=== PATIENT | female | born 1980 | race Caucasian/White ===

== ENCOUNTER 2016-08-15 20:52 | Inpatient (IN) | payer MEDICAID, OTHER ==
[~2016-08-15] VITALS: Ht 165.1 cm; Wt 89.5 kg
[~2016-08-15 20:52] MED LIST: NITR-36; [UNRECOGNIZED DRUG - OTHER]
[2016-08-15] MEDS ORDERED: ONDANSETRON 4 MG INJ IV STA (23:32)
[2016-08-15] MEDS ORDERED: SOD CHLORIDE 0.9% 1,000 ML IV STA (23:32)
[2016-08-15] MEDS ORDERED: ACETAMINOPHEN 500 MG TAB PO STA (23:32)
[2016-08-15] MEDS ORDERED: FAMOTIDINE 20 MG INJ IV STA (23:32)
--- NOTE | 2016-08-15 23:38 | ERD ---
ER Documentation Chief Complaint Date/Time DATE: 08/15/16 TIME: 23:34 Chief Complaint n/v x 1 day HPI This a 35-year-old female who presents to the emergency department today complaining of multiple bouts of vomiting that started today. Patient states she does have some body aches. States she has an upper abdominal pain. She has a history of gallstones. States that she feels weak. Denies any sore throat , earache, headache, dysuria, cough. ROS All systems reviewed and are negative except as per history of present illness. Medications Home Meds Reported Medications Nitrofurantoin Macrocrystal* (Macrodantin*) 100 Mg Capsule 09/29/10 [Iron,Prenatals] No Conflict Check 09/26/10 Allergies Allergies: Coded Allergies: No Known Allergy (Unverified , 09/29/10) PMhx/Soc History of Surgery: Yes (APPENDECTOMY, 2 X C SECTION) Anesthesia Reaction: No Hx Neurological Disorder: No Hx Respiratory Disorders: No Hx Cardiac Disorders: No Hx Psychiatric Problems: No Hx Miscellaneous Medical Probl: Yes (gallstone) Hx Alcohol Use: No Hx Substance Use: No Hx Tobacco Use: No Smoking Status: Never smoker Physical Exam Vitals Vital Signs Date Time Temp Pulse Resp B/P Pulse Ox O2 Delivery O2 Flow Rate FiO2 08/15/16 20:54 102.2 104 17 135/65 94 Physical Exam Const: Cooperative, no acute distress Head: Atraumatic Eyes: Normal Conjunctiva ENT: Ears TMs normal. Nose no drainage. Throat erythema no exudate Neck: Full range of motion..~ No meningismus. Resp: Clear to auscultation bilaterally no absent breath sounds. No wheezing. Cardio: Regular rate and rhythm, no murmurs Abd: Soft, epigastric tenderness, right upper quadrant tenderness. non distended. Normal bowel sounds. No lower abdominal pain. Skin: No petechiae or rashes Back: No midline or flank tenderness no CVA tenderness. Ext: No cyanosis, or edema Neur: Awake and alert Psych: Normal Mood and Affect Result Diagram: 08/15/16 0005 08/15/16 0005 Results 24 hrs Laboratory Tests Test 08/15/16 00:00 08/15/16 00:05 Urine Color YELLOW Urine Clarity CLEAR Urine pH 8.0 Urine Specific [place] 1.015 Urine Ketones NEGATIVE Urine Nitrite NEGATIVE Urine Bilirubin NEGATIVE Urine Urobilinogen 1.0 E.U./dL Urine Leukocyte Esterase TRACE Urine Microscopic RBC 2-5/HPF Urine Microscopic WBC 0-2/HPF Urine Squamous Epithelial Cells MODERATE Urine Bacteria MODERATE Urine Hemoglobin 2+ Urine Glucose NEGATIVE% Urine Total Protein TRACE White Blood Count 7.910^3/ul Red Blood Count 4.5710^6/ul Hemoglobin 12.6g/dl Hematocrit 38.0% Mean Corpuscular Volume 83.2fl Mean Corpuscular Hemoglobin 27.6pg Mean Corpuscular Hemoglobin Concent 33.2g/dl Red Cell Distribution Width 13.2% Platelet Count 04647^3/UL Mean Platelet Volume 9.6fl Neutrophils % 86.3% Lymphocytes % 9.6% Monocytes % 3.5% Eosinophils % 0.1% Basophils % 0.1% Nucleated Red Blood Cells % 0.0/100WBC Neutrophils # 6.910^3/ul Lymphocytes # 0.810^3/ul Monocytes # 0.310^3/ul Eosinophils # 0.010^3/ul Basophils # 0.010^3/ul Nucleated Red Blood Cells # 0.010^3/ul Sodium Level 136mmol/L Potassium Level 3.8mmol/L Chloride Level 106mmol/L Carbon Dioxide Level 22mmol/L Anion Gap 12 Blood Urea Nitrogen 10mg/dl Creatinine 0.61mg/dl Glucose Level 108mg/dl Calcium Level 8.6mg/dl Total Bilirubin 1.5mg/dl Direct Bilirubin 0.00mg/dl Indirect Bilirubin 1.5mg/dl Aspartate Amino Transf (AST/SGOT) 44IU/L Alanine Aminotransferase (ALT/SGPT) 77IU/L Alkaline Phosphatase 105IU/L Total Protein 7.6g/dl Albumin 4.3g/dl Globulin 3.30g/dl Albumin/Globulin Ratio 1.30 Lipase 70U/L Current Medications Medications (Trade) Dose Ordered Sig/Reina Route PRN Reason Start Time Stop Time Status Last Admin Dose Admin Sodium Chloride (NS) 1,000 ml @ 1,000 mls/hr Q1H STAT IV 08/15/16 23:32 08/16/16 00:31 DC 08/16/16 00:21 Ondansetron HCl (Zofran Inj) 4 mg ONCE STAT IV 08/15/16 23:32 08/15/16 23:35 DC 08/16/16 00:20 Famotidine (Pepcid Iv) 20 mg ONCE STAT IV 08/15/16 23:32 08/15/16 23:35 DC 08/16/16 00:20 Acetaminophen (Tylenol Tab) 500 mg ONCE STAT PO 08/15/16 23:32 08/15/16 23:35 DC DIAGNOSTIC IMAGING REPORT Patient: CRISTINE PINA : 1980 Age: 35 Sex: F MR #: [id number] DOS: 08/16/16 2332 Ordering MD: NORBERTO BLAKE PA-C Location: [facility] Room/Bed: PROCEDURE: US Abdomen (right upper quadrant). CLINICAL INDICATION: Pain. Fever. TECHNIQUE: Multiple real-time longitudinal and transverse images of the right upper quadrant of the abdomen were acquired utilizing a curved array transducer. Images were reviewed on a high-resolution PACS workstation. COMPARISON: None FINDINGS: The liver is enlarged at 20 cm and mildly echogenic without focal mass. Gallstones are present including a non mobile gallstone in the region of the gallbladder neck. Gallbladder wall is thickened at 4.8 mm. There is no pericholecystic fluid. No intra or extrahepatic biliary dilatation is seen. The common bile duct measures 4.1 mm in maximal dimension. The visualized portions of the pancreas are unremarkable with obscuration of the tail of the pancreas. No free fluid is identified. Visualized abdominal aorta and IVC are unremarkable. The right kidney measures 10.5 cm in length. There is normal echogenicity within the right kidney. There is no perinephric fluid collection. No hydronephrosis, mass, or calculus is seen. IMPRESSION: 1. Cholelithiasis including a gallstone in the region gallbladder neck. 2. Gallbladder wall thickening. No pericholecystic fluid to suggest acute cholecystitis although this cannot be excluded. 3. No evidence for biliary obstruction. 4. Enlarged fatty liver. RPTAT: HMVK .Justice Fair MD, Date Time Electronically viewed and signed by .Justice Fair MD, on 08/16/2016 01:38 .K/ CC: NORBERTO BLAKE PA-C Procedures/[facility] This a 35-year-old female who presents the emergency department today complaining of multiple bouts of vomiting for the past day. Patient states she felt weak. On intake patient was febrile at 102.2 and was mildly tachycardic. Patient has history of gallstones. He did obtain laboratory work as well as a right upper quadrant ultrasound and UA and urine Laboratory work shows no elevated white blood cell count. She is not anemic. Platelets are within normal limits. Electrolytes are within normal limits. ALT is very mildly elevated. Lipase within normal limits bilirubin is elevated UA shows trace leukocyte Estrace. Urine test is negative. Right upper quadrant ultrasound shows cholelithiasis including a gallstone in the region of the gallbladder neck. There is gallbladder wall thickening with no pericholecystic fluid to suggest acute cholecystitis although this cannot be excluded. There is no evidence for biliary obstruction. There is an enlarged fatty liver. Given the patient's symptoms and elevated bilirubin as well as a stone in the gallbladder neck patient's physical exam, patient symptoms at this time likely related to acute cholecystitis. I discussed the patient with Dr. Horner and he feels that the patient should be admitted. I have discussed the findings with the patient and patient is in understanding Patient was given Tylenol, Zofran, Pepcid, IV fluids here in the emergency department. Patient will be transferred to the main side of the emergency department. Any further documentation will be completed by Dr. Horner or the admitting physician Departure Diagnosis: Primary Impression: Cholecystitis Condition: Fair NORBERTO BLAKE PA-C Aug 15, 2016 23:38
[2016-08-16] VITALS (20 sets, daily range): BP systolic 97–138; BP diastolic 50–78; PULSE 66–88; RESP 13–22; TEMP 97.8; Ht 165.1 cm; Wt 89.5 kg
[2016-08-16 00:33] LABS: ADD SCAN DIFF NO
[2016-08-16 00:35] LABS: BASOPHILS % 0.1 % (0.0-2.0); EOSINOPHILS % 0.1 % (0.0-7.0); HEMOGLOBIN 12.6 g/dl (12.0-16.0); LYMPHOCYTES # 0.8 10^3/ul (0.8-2.9); LYMPHOCYTES % 9.6 % (15.0-51.0); MEAN CORPUSCULAR HEMOGLOBIN 27.6 pg (29.0-33.0); MEAN CORPUSCULAR HGB CONC 33.2 g/dl (32.0-37.0); MEAN CORPUSCULAR VOLUME 83.2 fl (82.0-101.0); MEAN PLATELET VOLUME 9.6 fl (7.4-10.4); MONOCYTE # 0.3 10^3/ul (0.3-0.9); MONOCYTES % 3.5 % (0.0-11.0); NEUTROPHIL # 6.9 10^3/ul (1.6-7.5); NEUTROPHILS % 86.3 % (39.0-77.0); PLATELET COUNT 369 10^3/UL (140-415); RED BLOOD COUNT 4.57 10^6/ul (4.20-5.40); RED CELL DISTRIBUTION WIDTH 13.2 % (11.5-14.5); WHITE BLOOD COUNT 7.9 10^3/ul (4.8-10.8)
[2016-08-16 00:35] LABS: ADD UMIC YES; URINE BILIRUBIN (Dip) NEGATIVE (NEGATIVE); URINE BLOOD (Dip) 2+ (NEGATIVE); URINE COLOR YELLOW (YELLOW); URINE GLUCOSE (Dip) NEGATIVE (NEGATIVE); URINE KETONES (Dip) NEGATIVE (NEGATIVE); URINE LEUKOCYTE ESTERASE (Dip) TRACE (NEGATIVE); URINE NITRITE (Dip) NEGATIVE (NEGATIVE); URINE TOTAL PROTEIN (Dip) TRACE (NEGATIVE); URINE UROBILINOGEN (Dip) 1.0 E.U./dL (0.1-1.0)
[2016-08-16 00:46] LABS: ALBUMIN 4.3 g/dl (3.3-4.9); ALBUMIN/GLOBULIN RATIO 1.3; BILIRUBIN,INDIRECT 1.5 mg/dl (0-1.1); BILIRUBIN,TOTAL 1.5 mg/dl (0.2-1.3); CALCIUM 8.6 mg/dl (8.4-10.2); CREATININE 0.61 mg/dl (0.44-1.00); POTASSIUM 3.8 mmol/L (3.5-5.1); TOTAL PROTEIN 7.6 g/dl (6.1-8.1)
--- NOTE | 2016-08-16 01:38 | RADRPT ---
PROCEDURE: US Abdomen (right upper quadrant). CLINICAL INDICATION: Pain. Fever. TECHNIQUE: Multiple real-time longitudinal and transverse images of the right upper quadrant of th e abdomen were acquired utilizing a curved array transducer. Images were reviewed on a high-resoluti on PACS workstation. COMPARISON: None FINDINGS: The liver is enlarged at 20 cm and mildly echogenic without focal mass. Gallstones are present incl uding a non mobile gallstone in the region of the gallbladder neck. Gallbladder wall is thickened a t 4.8 mm. There is no pericholecystic fluid. No intra or extrahepatic biliary dilatation is seen. T he common bile duct measures 4.1 mm in maximal dimension. The visualized portions of the pancreas a re unremarkable with obscuration of the tail of the pancreas. No free fluid is identified. Visualiz ed abdominal aorta and IVC are unremarkable. The right kidney measures 10.5 cm in length. There is normal echogenicity within the right kidney. There is no perinephric fluid collection. No hydronephrosis, mass, or calculus is seen. IMPRESSION: 1. Cholelithiasis including a gallstone in the region gallbladder neck. 2. Gallbladder wall thickening. No pericholecystic fluid to suggest acute cholecystitis although t his cannot be excluded. 3. No evidence for biliary obstruction. 4. Enlarged fatty liver. RPTAT: HMVK .Justice Fair MD, MD Date Time Electronically viewed and signed by .Justice Fair MD, MD on 08/16/2016 01:38 .K/
[2016-08-16 01:41] LABS: BACTERIA,URINE MODERATE; SQUAMOUS EPITHELIAL CELL,UR MODERATE
[2016-08-16] MEDS ORDERED: ACETAMINOPHEN 500 MG TAB PO STA (03:00)
[2016-08-16] MEDS ORDERED: PIPER-TAZO 3.375 GM IV (PMX) 100 ML IVPB ONE (03:00)
[2016-08-16] MEDS ORDERED: SOD CHLORIDE 0.9% 1,000 ML IV SCH (03:15)
--- NOTE | 2016-08-16 03:15 | HP ---
Date/Time of Note Date/Time of Note DATE: 08/16/16 TIME: 03:15 HPI/ROS Admit Date/Time Admit Date/Time 08/16/16 0309 Hx of Present Illness This a 35-year-old female who presents to the emergency department today complaining of multiple bouts of vomiting that started today. Patient states she does have some body aches. States she has an upper abdominal pain. She has a history of gallstones. States that she feels weak. Denies any sore throat , earache, headache, dysuria, cough. ROS All systems reviewed and are negative except as per history of present illness. Medications Home Meds Reported Medications Nitrofurantoin Macrocrystal* (Macrodantin*) 100 Mg Capsule 09/29/10 [Iron,Prenatals] No Conflict Check 09/26/10 Allergies Allergies: Coded Allergies: No Known Allergy (Unverified , 09/29/10) PMhx/Soc History of Surgery: Yes (APPENDECTOMY, 2 X C SECTION) Anesthesia Reaction: No Hx Neurological Disorder: No Hx Respiratory Disorders: No Hx Cardiac Disorders: No Hx Psychiatric Problems: No Hx Miscellaneous Medical Probl: Yes (gallstone) Hx Alcohol Use: No Hx Substance Use: No Hx Tobacco Use: No Smoking Status: Never smoker Physical Exam Vitals Vital Signs Date Time Temp Pulse Resp B/P Pulse Ox O2 Delivery O2 Flow Rate FiO2 08/15/16 20:54 102.2 104 17 135/65 94 Physical Exam Const: Cooperative, no acute distress Head: Atraumatic Eyes: Normal Conjunctiva ENT: Ears TMs normal. Nose no drainage. Throat erythema no exudate Neck: Full range of motion..~ No meningismus. Resp: Clear to auscultation bilaterally no absent breath sounds. No wheezing. Cardio: Regular rate and rhythm, no murmurs Abd: Soft, epigastric tenderness, right upper quadrant tenderness. non distended. Normal bowel sounds. No lower abdominal pain. Skin: No petechiae or rashes Back: No midline or flank tenderness no CVA tenderness. Ext: No cyanosis, or edema Neur: Awake and alert Psych: Normal Mood and Affect Result Diagram: 08/15/16 0005 08/15/16 0005 Results 24 hrs Laboratory Tests Test 08/15/16 00:00 08/15/16 00:05 Urine Color YELLOW Urine Clarity CLEAR Urine pH 8.0 Urine Specific [place] 1.015 Urine Ketones NEGATIVE Urine Nitrite NEGATIVE Urine Bilirubin NEGATIVE Urine Urobilinogen 1.0 E.U./dL Urine Leukocyte Esterase TRACE Urine Microscopic RBC 2-5/HPF Urine Microscopic WBC 0-2/HPF Urine Squamous Epithelial Cells MODERATE Urine Bacteria MODERATE Urine Hemoglobin 2+ Urine Glucose NEGATIVE% Urine Total Protein TRACE White Blood Count 7.910^3/ul Red Blood Count 4.5710^6/ul Hemoglobin 12.6g/dl Hematocrit 38.0% Mean Corpuscular Volume 83.2fl Mean Corpuscular Hemoglobin 27.6pg Mean Corpuscular Hemoglobin Concent 33.2g/dl Red Cell Distribution Width 13.2% Platelet Count 50114^3/UL Mean Platelet Volume 9.6fl Neutrophils % 86.3% Lymphocytes % 9.6% Monocytes % 3.5% Eosinophils % 0.1% Basophils % 0.1% Nucleated Red Blood Cells % 0.0/100WBC Neutrophils # 6.910^3/ul Lymphocytes # 0.810^3/ul Monocytes # 0.310^3/ul Eosinophils # 0.010^3/ul Basophils # 0.010^3/ul Nucleated Red Blood Cells # 0.010^3/ul Sodium Level 136mmol/L Potassium Level 3.8mmol/L Chloride Level 106mmol/L Carbon Dioxide Level 22mmol/L Anion Gap 12 Blood Urea Nitrogen 10mg/dl Creatinine 0.61mg/dl Glucose Level 108mg/dl Calcium Level 8.6mg/dl Total Bilirubin 1.5mg/dl Direct Bilirubin 0.00mg/dl Indirect Bilirubin 1.5mg/dl Aspartate Amino Transf (AST/SGOT) 44IU/L Alanine Aminotransferase (ALT/SGPT) 77IU/L Alkaline Phosphatase 105IU/L Total Protein 7.6g/dl Albumin 4.3g/dl Globulin 3.30g/dl Albumin/Globulin Ratio 1.30 Lipase 70U/L Current Medications Medications (Trade) Dose Ordered Sig/Reina Route PRN Reason Start Time Stop Time Status Last Admin Dose Admin Sodium Chloride (NS) 1,000 ml @ 1,000 mls/hr Q1H STAT IV 08/15/16 23:32 08/16/16 00:31 DC 08/16/16 00:21 Ondansetron HCl (Zofran Inj) 4 mg ONCE STAT IV 08/15/16 23:32 08/15/16 23:35 DC 08/16/16 00:20 Famotidine (Pepcid Iv) 20 mg ONCE STAT IV 08/15/16 23:32 08/15/16 23:35 DC 08/16/16 00:20 Acetaminophen (Tylenol Tab) 500 mg ONCE STAT PO 08/15/16 23:32 08/15/16 23:35 DC DIAGNOSTIC IMAGING REPORT Patient: CRISTINE PINA : 1980 Age: 35 Sex: F MR #: [id number] DOS: 08/16/16 2332 Ordering MD: NORBERTO BLAKE PA-C Location: [facility] Room/Bed: PROCEDURE: US Abdomen (right upper quadrant). CLINICAL INDICATION: Pain. Fever. TECHNIQUE: Multiple real-time longitudinal and transverse images of the right upper quadrant of the abdomen were acquired utilizing a curved array transducer. Images were reviewed on a high-resolution PACS workstation. COMPARISON: None FINDINGS: The liver is enlarged at 20 cm and mildly echogenic without focal mass. Gallstones are present including a non mobile gallstone in the region of the gallbladder neck. Gallbladder wall is thickened at 4.8 mm. There is no pericholecystic fluid. No intra or extrahepatic biliary dilatation is seen. The common bile duct measures 4.1 mm in maximal dimension. The visualized portions of the pancreas are unremarkable with obscuration of the tail of the pancreas. No free fluid is identified. Visualized abdominal aorta and IVC are unremarkable. The right kidney measures 10.5 cm in length. There is normal echogenicity within the right kidney. There is no perinephric fluid collection. No hydronephrosis, mass, or calculus is seen. IMPRESSION: 1. Cholelithiasis including a gallstone in the region gallbladder neck. 2. Gallbladder wall thickening. No pericholecystic fluid to suggest acute cholecystitis although this cannot be excluded. 3. No evidence for biliary obstruction. 4. Enlarged fatty liver. RPTAT: HMVK .Justice Fair MD, Date Time Electronically viewed and signed by .Justice Fair MD, MD on 08/16/2016 01:38 .K/ CC: NORBERTO BLAKE PA-C Procedures/[facility] This a 35-year-old female who presents the emergency department today complaining of multiple bouts of vomiting for the past day. Patient states she felt weak. On intake patient was febrile at 102.2 and was mildly tachycardic. Patient has history of gallstones. He did obtain laboratory work as well as a right upper quadrant ultrasound and UA and urine Laboratory work shows no elevated white blood cell count. She is not anemic. Platelets are within normal limits. Electrolytes are within normal limits. ALT is very mildly elevated. Lipase within normal limits bilirubin is elevated UA shows trace leukocyte Estrace. Urine test is negative. Right upper quadrant ultrasound shows cholelithiasis including a gallstone in the region of the gallbladder neck. There is gallbladder wall thickening with no pericholecystic fluid to suggest acute cholecystitis although this cannot be excluded. There is no evidence for biliary obstruction. There is an enlarged fatty liver. Given the patient's symptoms and elevated bilirubin as well as a stone in the gallbladder neck patient's physical exam, patient symptoms at this time likely related to acute cholecystitis. I discussed the patient with Dr. Horner and he feels that the patient should be admitted. I have discussed the findings with the patient and patient is in understanding Patient was given Tylenol, Zofran, Pepcid, IV fluids here in the emergency department. Patient will be transferred to the main side of the emergency department. Any further documentation will be completed by Dr. Horner or the admitting physician Departure Diagnosis: Primary Impression: Cholecystitis Condition: Fair PMH/Family/Social Social History Smoking Status: Never smoker Exam/Review of Systems Vital Signs Vitals Vital Signs Date Time Temp Pulse Resp B/P Pulse Ox O2 Delivery O2 Flow Rate FiO2 08/15/16 20:54 102.2 104 17 135/65 94 Labs Result Diagram: 08/15/16 0005 08/15/16 0005 Medications Medications Current Medications Piperacillin Sod/ Tazobactam Sod (Zosyn 3.375gm/ 100 ml (Pmx)) 100 ml @ 200 mls /hr ONCE ONCE IVPB ; Start 08/16/16 at 03:00; Stop 08/16/16 at 03:29 BELGICA NUGENT DO Aug 16, 2016 03:15
--- NOTE | 2016-08-16 03:22 | EN ---
Date/Time of Note Date/Time of Note DATE: 08/16/16 TIME: 03:19 ER Progress Note The patient is a 35-year-old female, seen by physician operations and intelligence assistant who discussed the patient with me. She presented with epigastric and right upper quadrant abdominal pain, associated with fever, abdominal ultrasound showed thickening gallbladder wall with cholelithiasis. This consistent with acute cholecystitis. However, total bilirubin is also elevated at 1.5, not rule out choledocholithiasis, cholangitis I examined the patient myself. Abdominal exam show mild to moderate epigastric and right upper quadrant tenderness. No rigidity, rebound, CVA tenderness She was treated with IV fluid, Zosyn IV, she declined pain medication The differential diagnoses considered include but are not limited to cholelithiasis, cholecystitis, cystitis, pancreatitis, hepatitis, gastritis, peptic ulcer disease, gastric ulcer, appendicitis, diverticulitis, cholangitis, choledocholithiasis, partial small bowel obstruction. Consultation: I discussed the patient with the on-call general surgeon Dr. Moran, was made aware of the lab, the patient treatment and condition. He accepted the consult at 3:15 AM Diagnostic impression: Acute cholecystitis Disposition: I discussed the findings with the patient. I discussed the patient with the on-call hospitalist Dr. Blue who was made aware of the lab, the treatment, the patient condition and my discussion with the general surgeon. The patient is admitted to [facility] at 3:25 AM. She may require MRCP to rule out choledocholithiasis CHRISS BEASLEY MD Aug 16, 2016 03:22
[2016-08-16] MEDS ORDERED: NACL 0.9% 3 ML SYG IV SCH (03:30)
[2016-08-16] MEDS ORDERED: morphine 4 MG/ML VIAL IV PRN (03:30)
[2016-08-16] MEDS ORDERED: METOCLOPRAMIDE 10 MG INJ IV PRN ×2 (03:30→14:00)
[2016-08-16] MEDS: FAMOTIDINE 20 MG INJ IV SCH ×2 (08:30→22:01)
[2016-08-16] MEDS ORDERED: hydrALAzine 20 MG INJ IV PRN (10:00)
--- NOTE | 2016-08-16 10:30 | CONS ---
Date/Time of Note Date/Time of Note DATE: 08/16/16 TIME: 10:24 Assessment/Plan Assessment/Plan Additional Assessment/Plan [facility] INITIAL INPATIENT CONSULTATION NOTE DATE OF CONSULTATION: 08/16/2016 PLACE OF SERVICE: [facility] preoperative area. ASSESSMENT AND PLAN: A very pleasant and otherwise healthy 35-year-old lady with known comorbidities of a BMI of 32.8 and prior operations, presenting with symptomatic cholelithiasis and possible early acute cholecystitis. I recommended and obtained the patient's (no family present) consent for a laparoscopic, possible open, cholecystectomy. We reviewed the risks, benefits and alternatives, and the patient had a chance to ask questions, which I answered to the best of my ability. I believe that she understood and wished to proceed with surgery. With above assessment, I have recommended the following: To the operating room for above. Thank you again for allowing us to participate in the care of this very pleasant lady and I'm certain her wonderful family. If there are any questions , please feel free to contact me at [phone]. TOTAL VISIT TIME: 45 minutes, of which more than half was spent in face-to- face discussion with the patient, as well as discussions with her mother and coordination of care between multiple physicians and providers. UPDATED CLINICAL SUMMARY: The patient is a very pleasant 35-year-old lady with known comorbidities of a BMI of 32.8 and prior operations, presenting with symptomatic cholelithiasis and possible early acute cholecystitis. COMORBIDITIES: 1. BMI of 32.8. 2. Cholelithiasis 3. Appendectomy 4. C-sections (x2) DATE OF ADMISSION: 08/15/2016 HISTORY OF PRESENT ILLNESS: The patient is a very pleasant 35-year-old lady with known comorbidities of a BMI of 32.8 and prior operations, presenting with a 2-3-week history of abdominal discomfort that has progressively worsened and localizing to the right upper quadrant, associated with nausea and vomiting. She was evaluated at [facility] ED where her white blood cell count was normal and a RUQ US showed a medium sized gallstone immobile at the GB neck. She was fairly comfortable during my visit and did not have any other major complaints. ALLERGIES: NO KNOWN DRUG ALLERGIES. MEDICATIONS: See EHR. SOCIAL HISTORY: The patient works in the [employer] business. No reported smoking, drinking, or intravenous drug use. FAMILY HISTORY: No major medical, surgical or oncologic problems in the family. REVIEW OF SYSTEMS: Other than the above-mentioned, there are no other pertinent positives or pertinent negatives in a complete 14-point review of systems. PHYSICAL EXAMINATION: GENERAL: The patient appears to be a very pleasant young lady of descent, appearing her stated age, lying in bed comfortably and in no acute distress. BMI is 32.8. VITAL SIGNS: see below HEENT: Normocephalic and atraumatic. Extraocular muscles and hearing are grossly intact bilaterally and symmetrically. Sclerae are nonicteric. Oral cavity is clear; oral mucosa appeared to be pink and moist. Dentition: good. NECK: Supple. There is no lymphadenopathy or JVD. There is no submental, submandibular or supraclavicular lymphadenopathy. CHEST: Rises symmetrically with each breath; patient is breathing comfortably. There are no audible wheezes, rales or rhonchi on the gross exam. HEART: Pulse is regular and palpable on the right wrist. Capillary refill was normal. Carotid pulses are palpable bilaterally and symmetrically in the neck. EXTREMITIES: Lower extremities contain no pitting edema around the ankles bilaterally and symmetrically. ABDOMEN: Mild to moderately tender to palpation in the right upper quadrant and is otherwise soft and nondistended. There is no evidence of peritoneal signs or guarding. SKIN: Appears to be pink and feels warm to touch. NEUROLOGIC: Awake, alert, and follows commands appropriately. LABORATORY VALUES: Slight elevation in Bili, but normal alk phos IMAGING: RUQ US findings were reviewed above. Note that I personally reviewed the images and I agree in general with their overall reported findings. Consultation Date/Type/Reason Admit Date/Time 08/16/16 0306 Social History Smoking Status: Never smoker Exam/Review of Systems Vital Signs Vitals Vital Signs Date Time Temp Pulse Resp B/P Pulse Ox O2 Delivery O2 Flow Rate FiO2 08/16/16 08:00 98.6 72 18 113/69 95 08/16/16 04:16 Room Air Results Result Diagram: 08/15/16 0005 08/15/16 0005 Medications Medications Current Medications Sodium Chloride (NS) 1,000 ml @ 100 mls/hr Q10H IV Last administered on t 04:04; Admin Dose 100 MLS/HR; Start 08/16/16 at 03:15 Metoclopramide HCl (Reglan) 10 mg Q6H PRN IV NAUSEA AND/OR VOMITING; Start at 03:30 Morphine Sulfate (morphine) 4 mg Q4H PRN IV SEVERE PAIN LEVEL 7-10; Start 08/16 at 03:30 Famotidine 20 mg 20 mg Q12 IV Last administered on 08/16/16t 08:30; Admin Dose 20 MG; Start 08/16/16 at 09:00 Piperacillin Sod/ Tazobactam Sod (Zosyn 3.375gm/ 100 ml (Pmx)) 100 ml @ 200 mls /hr Q8 IVPB ; Start 08/16/16 at 14:00; Status UNV Hydralazine HCl (Apresoline) 10 mg Q6H PRN IV SBP>160; Start 08/16/16 at 10:00 ; Status UNV BLAS DEMARCO M.D. Aug 16, 2016 10:30
[2016-08-16] MEDS ORDERED: ROCURONIUM 50 MG INJ ONE (13:17)
[2016-08-16] MEDS ORDERED: PROPOFOL 20 ML ONE (13:17)
[2016-08-16] MEDS ORDERED: NEOSTIGMINE 3 MG/3 ML SYRINGE ONE ×2 (13:17→14:18)
[2016-08-16] MEDS ORDERED: GLYCOPYRROLATE 0.4 MG INJ ONE ×2 (13:17→14:18)
[2016-08-16] MEDS ORDERED: METOCLOPRAMIDE 10 MG INJ ONE (13:18)
[2016-08-16] MEDS ORDERED: ROPIVACAINE 0.5 % 30 ML VIAL ONE (13:18)
[2016-08-16] MEDS ORDERED: KETOROLAC 30 MG INJ ONE (13:18)
[2016-08-16] MEDS ORDERED: MIDAZOLAM 1 MG/ML 2 ML INJ ONE (13:18)
[2016-08-16] MEDS ORDERED: ACETAMINOPHEN 1000MG/100ML IV 100 ML ONE (13:30)
[2016-08-16] MEDS ORDERED: DEXAMETHASONE 4 MG/ML 1 ML INJ ONE (13:40)
[2016-08-16] MEDS ORDERED: HYDROmorphONE 2 MG/ML SYG ONE (13:44)
[2016-08-16] MEDS ORDERED: BUPIVACAINE 0.25%/EPI (SDV) 30 ML INJ ONE (13:47)
[2016-08-16] MEDS ORDERED: ONDANSETRON 4 MG INJ IV PRN (14:00)
[2016-08-16] MEDS ORDERED: DIPHENHYDRAMINE 50 MG INJ IV PRN (14:00)
[2016-08-16] MEDS ORDERED: MEPERIDINE 25 MG INJ IV PRN (14:00)
[2016-08-16] MEDS ORDERED: HYDROmorphONE (0.2 MG/ML) 10ML SYG IV PRN ×3 (14:00)
[2016-08-16] MEDS ORDERED: PIPER-TAZO 3.375 GM IV (PMX) 100 ML IVPB SCH (14:00)
--- NOTE | 2016-08-16 15:29 | OPR ---
Date/Time of Note Date/Time of Note DATE: 08/16/16 TIME: 15:21 Operative Report Operative\Procedure Findings [facility] INPATIENT OPERATIVE NOTE PLACE OF SERVICE: [facility] DATE OF SURGERY: 08/16/2016 PREOPERATIVE DIAGNOSIS: 1. Acute cholecystitis 2. BMI of 32.8. 3. Cholelithiasis 4. Appendectomy 5. C-sections (x2) POSTOPERATIVE DIAGNOSIS: 1. Acute cholecystitis 2. BMI of 32.8. 3. Cholelithiasis 4. Appendectomy 5. C-sections (x2) 6. Likely fatty liver disease 7. Umbilical hernia, status post repair 08/16/2016 OPERATION: 1. Laparoscopic cholecystectomy 2. Core needle liver biopsy segment 5 (3 cores) 3. Umbilical hernia repair (1 x 1 cm, repaired without mesh) SURGEON: Blas Barclay M.D. DIESEL SCOOP OPERATOR: Nayely ANESTHESIA: General endotracheal tube anesthesia ANESTHESIOLOGIST: Riky Causey M.D. BRIEF SUMMARY: An otherwise uncomplicated laparoscopic cholecystectomy was performed with findings of acute cholecystitis. There is also an umbilical hernia that was repaired. Liver biopsy was also performed due to concerns for fatty liver disease. UPDATED CLINICAL SUMMARY: The patient is a very pleasant 35-year-old lady with known comorbidities of a BMI of 32.8 and prior operations, presenting with symptomatic cholelithiasis and possible early acute cholecystitis. COMORBIDITIES: 1. BMI of 32.8. 2. Cholelithiasis 3. Appendectomy 4. C-sections (x2) BRIEF HISTORY: The patient is a very pleasant and otherwise healthy 35-year-old lady with known comorbidities of a BMI of 32.8 and prior operations, presenting with symptomatic cholelithiasis and possible early acute cholecystitis. I recommended and obtained the patient's (no family present) consent for a laparoscopic, possible open, cholecystectomy. We reviewed the risks, benefits and alternatives, and the patient had a chance to ask questions, which I answered to the best of my ability. I believe that she understood and wished to proceed with surgery. For a detailed report of my consultation with patient, please refer to my separate consultation note. STATEMENT OF THE INFORMED CONSENT: The patient appeared to understand the risks of the operation to include, but not be limited to risk of postoperative pain and scar tissue, possible infection or bleeding requiring other interventions such as opening the wound, placement of drainage catheters, or other operative interventions; possible injury to surrounding to structures including bowel, bladder, bile duct, or blood vessels, or solid organs such as liver, kidney, or pancreas requiring other interventions or procedures; possible leakage of bile from surgical clip sites, suture lines, or worse, from common bile duct injury, causing significant increase in morbidity and mortality and requiring multiple interventions including but not limited to, placement of drainage catheters, imaging studies, as well as operative interventions; possible other source of sepsis such as urinary tract infections or pneumonias, or other sources of potentially life threatening problems such as deep venous thrombus formation causing pulmonary embolism, myocardial arrhythmias and infarctions, and even . After careful consideration of all their options, the patient appeared to understand and wished to proceed with surgery. DESCRIPTION OF PROCEDURE: After obtaining informed consent, the patient was brought into the operating room and was placed in a normal supine position, where successful general endotracheal tube anesthesia was performed. The patient 's abdominal skin was prepped and draped, from the nipple line down to the level of the groins, in the usual sterile fashion. Intravenous access was already in place, and appropriately chosen and dosed prophylactic intravenous antimicrobials were administered. We then called a surgical time-out where patient's identification, date of , nature of the operation, allergies, presence of intravenous antimicrobials, presence of needed equipment, and any other concerns were reviewed and agreed upon by all members of the operating room team. We then started the operation by placing a 5-mm skin incision in the right- upper quadrant, subcostal midclavicular line, and introduced a 5-mm [employer] trocar into the peritoneal space, visualizing all the layers of the abdominal wall as we entered. Note that there was no indication of any injury to underlying structures once we entered the peritoneum. We insufflated the abdominal cavity to a maximum pressure of 15 mmHg, again, confirmed lack of any injury to underlying structures prior to visualizing the rest of the abdominal cavity. We found the fundus of the gallbladder to be visible. There was no evidence of malignancy. No evidence of calcifications or significant issues with adhesions, or other abnormalities. The liver appeared to be steatotic. With this information, we went a head and placed the other trocars under direct visualization, after injecting their sites with 0.25% Marcaine with epinephrine , placing a 5-mm trocar in the umbilical midline area, a 5-mm trocar in the right anterior axillary line, and a 12-mm trocar in the midline subxiphoid region. With our instruments in place, we had excellent visualization and access to the right-upper quadrant. Note that there was an umbilical hernia that we noted during insertion of the umbilical trocar. We then we grasped the fundus of the gallbladder and pointed up towards the right-upper quadrant. There was mild omental adhesions onto the infundibulum which we took down with judicious use of cautery, as well as meticulous blunt dissection. We were then able to grasp the infundibulum and pull it out in order to expose the critical triangle of Calot. We then placed our usual serosal cuts along the long axis of the gallbladder 1 cm away from its attachment to the liver bed up towards the fundus, and then joined these 2 lines under the infundibulum, taking care not to deliver any energy to underlying structures. Due to presence of significant scarring in the area of triangle of Calot low and to maximize degree of safety of the operation, I decided to take the gallbladder top-down using cautery which we accomplished without any significant difficulty. We then performed meticulous dissection to identify and circumferentially isolate both the cystic duct and cystic artery, prior to transecting them between 2 surgical Endoclips, proximally and one distally on the cystic artery and 3 surgical endoclips proximally and one distally on the cystic duct, transecting both using cold scissors, and only after making sure that these were the only 2 structures going into the gallbladder. We then shaved the gallbladder off the gallbladder bed using cautery, and then delivered it out inside of an EndoCatch bag through the 12-mm trocar site without enlarging the fascia or contaminating the wound. The gallbladder was sent to Pathology for evaluation. Returning to the abdominal cavity, we performed core needle liver biopsy of segment 5 using a Bard automatic liver biopsy needle. We then ensured that there was adequate hemostasis and bile-stasis prior to removal of all of or equipment, including the pneumoperitoneum, and then reapproximating the 12-mm trocar site with one [id number] 0 Vicryl suture, followed by repairing the 1 x 1 cm umbilical hernia site with 2 interrupted mqplsl-tv-clson 0 Vicryl suture on a UR 6 needle, then washing the wounds with copious amounts of normal saline, and then reapproximating the skin using interrupted 4-0 Monocryl sutures. Light dressing was then applied. At the end of the operation, both the sponge count and needle count were reportedly correct x2. The patient tolerated the procedure without any reported complications. ESTIMATED BLOOD LOSS: Less than 10 mL. BLOOD OR BLOOD PRODUCT TRANSFUSIONS: None to my knowledge. SPECIMENS: 1. Gallbladder 2. Core needle liver biopsy segment 5 (3 cores) COMPLICATIONS: None. DISPOSITION: Recovery area. Disclaimer: Inadvertent spelling and grammatical errors are likely due to EHR/ dictation software use and do not reflect on the quality of delivered patient care. BLAS BARCLAY M.D. Aug 16, 2016 15:29
[2016-08-16] MEDS ORDERED: NA PHOSPHATE/BIPHOS 133 ML ENEMA PR PRN (15:30)
[2016-08-16] MEDS ORDERED: BISACODYL 10 MG SUPP PR PRN (15:30)
[2016-08-16] MEDS ORDERED: DOCUSATE SODIUM 100 MG CAP PO PRN (15:30)
[2016-08-16] MEDS ORDERED: HYDROCODONE/APAP (5/325) TAB PO PRN ×2 (15:30)
[2016-08-16] MEDS: D5W-0.45 NACL + KCL 20 MEQ 1,000 ML IV SCH (16:49)
[2016-08-16] MEDS: HYDROmorphONE 1 MG/ML SYG IV PRN ×2 (18:10→22:08)
[2016-08-17] VITALS: BP 120/73; RESP 18
[2016-08-17] MEDS: D5W-0.45 NACL + KCL 20 MEQ 1,000 ML IV SCH ×2 (01:25→12:13)
[2016-08-17] MEDS: HYDROmorphONE 1 MG/ML SYG IV PRN ×2 (01:52→06:33)
[2016-08-17 05:33] LABS: ADD SCAN DIFF NO
[2016-08-17 05:46] LABS: BASOPHILS % 0.1 % (0.0-2.0); HEMATOCRIT 31.5 % (37.0-47.0); LYMPHOCYTES # 1.5 10^3/ul (0.8-2.9); LYMPHOCYTES % 18.3 % (15.0-51.0); MEAN CORPUSCULAR HGB CONC 31.7 g/dl (32.0-37.0); MEAN CORPUSCULAR VOLUME 85.1 fl (82.0-101.0); MEAN PLATELET VOLUME 9.4 fl (7.4-10.4); MONOCYTE # 0.7 10^3/ul (0.3-0.9); NEUTROPHILS % 73.4 % (39.0-77.0); PLATELET COUNT 284 10^3/UL (140-415); RED CELL DISTRIBUTION WIDTH 13.4 % (11.5-14.5); WHITE BLOOD COUNT 8.2 10^3/ul (4.8-10.8)
[2016-08-17 06:02] LABS: INR 1.06; PROTIME 13.8 Sec (12.2-14.2); PT RATIO 1.1
[2016-08-17 06:03] LABS: PARTIAL THROMBOPLASTIN TIME 25.9 Sec (25.0-35.0)
[2016-08-17 06:08] VITALS: BP 128/90; PULSE 80; RESP 18
[2016-08-17 06:23] LABS: ALBUMIN 3.1 g/dl (3.3-4.9); ALBUMIN/GLOBULIN RATIO 1.14; BILIRUBIN,INDIRECT 0.6 mg/dl (0-1.1); BILIRUBIN,TOTAL 0.6 mg/dl (0.2-1.3); CALCIUM 7.7 mg/dl (8.4-10.2); CREATININE 0.53 mg/dl (0.44-1.00); POTASSIUM 3.7 mmol/L (3.5-5.1); TOTAL PROTEIN 5.8 g/dl (6.1-8.1)
[2016-08-17 06:27] LABS: CHOL/HDL RATIO 3.1 RATIO; MAGNESIUM 1.9 mg/dl (1.7-2.5); PHOSPHORUS 2.9 mg/dl (2.5-4.9)
[2016-08-17 06:47] LABS: THYROID STIMULATING HORMONE 1.07 MIU/L (0.465-4.680)
[2016-08-17 07:00] VITALS: BP 123/75; RESP 18
[2016-08-17] MEDS: FAMOTIDINE 20 MG INJ IV SCH (08:07)
[2016-08-17] MEDS ORDERED: ENOXAPARIN 40 MG/0.4 ML SYG SC SCH (09:00)
[2016-08-17] MEDS ORDERED: CHOLECALCIFEROL 1,000 UNIT TAB PO SCH (13:00)
--- NOTE | 2016-08-17 13:27 | PDOCDIS ---
Discharge Instructions DIAGNOSIS Discharge Diagnosis: Acute cholecystitis. Status post laparoscopic cholecystectomy. CONDITION Patient Condition: Stable HOME CARE INSTRUCTIONS: Diet Instructions: Regular FOLLOW UP/APPOINTMENTS Appointments Yefri Barclay MD Specialty: General Surgery Office [facility] [address] [address] [place] [address] Office OTHER ORDERS: Other Orders: 1. Regular diet as tolerated. 2. Keep incisions clean and dry. May shower. Avoid tub baths and swimming for 2 weeks. Use mild soap and pat dry the incisions. 3. Take medications as needed for pain. 4. Call the surgeon or go to the nearest ER if you have severe abdominal pain despite pain medications. 5. Call the surgeon or go to the nearest ER if you notice any bleeding or secretions coming out of the incision sites. Also call the surgeon if you notice any blood in stool, if you have persistent fevers, or any other unusual signs or symptoms. 6. Follow-up with the surgeon Dr. Barclay in 7 days for incision check. 7. Avoid heavy lifting [more than 25 pounds] for 8 weeks. SCHOOL/WORK RELEASE May return to School/Work on: Aug 19, 2016 May return to School/Work with: With Restrictions (No heavy lifting [more than 25 pounds] for 8 weeks.) LOS FARAH NP Aug 17, 2016 13:27
[2016-08-17] MEDS ORDERED: CHOL100062 PO (13:29)
[2016-08-17] MEDS ORDERED: HYDR-3498 PO (13:29)
[2016-08-17] MEDS ORDERED: DOCU-144 PO (13:34)
--- NOTE | 2016-08-17 13:36 | PN ---
Date/Time of Note Date/Time of Note DATE: 08/17/16 TIME: 13:33 Assessment/Plan Lines/Catheters IV Catheter Type (from Nrs): Peripheral IV Assessment/Plan Assessment/Plan [facility] Progress Note Date of Service: 08/17/16 Today's Impression & Plan: Overall doing well post op without major issues. No major wound problems. With above assessment, I've recommended the following for today: 1. D/c home 2. D/c instructions: Please call [phone] if any of fever, nausea, vomiting, discharge from wound , wound redness, increase or sudden pain, blood in stool or vomit, or any other unusual signs or symptoms. Also, please call the same number in a few days to schedule an appointment for your follow up visit. Patient may remove dressings tomorrow. Showers OK starting tomorrow. No swimming , hot tub or bath for 2 weeks. No lifting more than 25 lbs for 8 weeks. Thank you again for your great care of this very pleasant patient and wonderful family. If there are any questions, please feel free to call me at [phone]. TOTAL VISIT TIME: 20 minutes of which more than half was spent in [id number] discussion with the patient, possibly including family, as well as coordination of care between multiple physicians and providers. Disclaimer: Inadvertent spelling or grammatical errors are likely due to EHR/ dictation software use and do not reflect on the overall quality of patient care. Updated Clinical Summary: The patient is a very pleasant 35-year-old lady with known comorbidities of a BMI of 32.8 and prior operations, presenting with symptomatic cholelithiasis and possible early acute cholecystitis. S/p laparoscopic cholecystectomy, core needle liver biopsy segment 5 (3 cores) andu mbilical hernia repair (1 x 1 cm, repaired without mesh) on 08/16/16 at [facility]. COMORBIDITIES: 1. Acute cholecystitis. S/p laparoscopic cholecystectomy, core needle liver biopsy segment 5 (3 cores) andu mbilical hernia repair (1 x 1 cm, repaired without mesh) on 08/16/16 at [facility]. 2. BMI of 32.8. 3. Cholelithiasis 4. Appendectomy 5. C-sections (x2) 6. Likely fatty liver disease 7. Umbilical hernia, status post repair 08/16/2016 Subjective: No major events or complaints; no major abd pain and under control with medications; no n/v/d; no sob or cp; + flatus; - BM; + activity Objective: Vitals: See below Exam: GENERAL: On exam, the patient was laying in bed and appeared to be comfortable and in no acute distress. ABDOMEN: Soft, nontender and nondistended. Incision dressings are clean, dry and intact without any evidence of underlying erythema, edema, discharge, or hernia. There are no peritoneal signs or guarding. SKIN: Skin appears to be pink and feels warm to touch. NEUROLOGIC: Patient is awake, alert, and follows commands appropriately. Exam/Review of Systems Vital Signs Vitals Vital Signs Date Time Temp Pulse Resp B/P Pulse Ox O2 Delivery O2 Flow Rate FiO2 08/17/16 07:00 98.8 66 18 123/75 97 08/17/16 06:08 Nasal Cannula 2.0 Intake and Output 08/16/16 08/16/16 08/17/16 15:00 23:00 07:00 Intake Total 1200 ml 2550 ml Output Total 5 ml 950 ml Balance 1195 ml 1600 ml Results Result Diagram: 08/17/16 0430 08/17/16 0430 BLAS DEMARCO M.D. Aug 17, 2016 13:36
--- NOTE | 2016-08-17 22:59 | DS ---
DATE OF ADMISSION: 08/16/2016 DATE OF DISCHARGE: 08/17/2016 FINAL DIAGNOSES: 1. Acute cholecystitis, status post laparoscopic cholecystectomy. 2. Umbilical hernia, status post repair. 3. Obesity, body mass index of 32.8 kilograms per meter squared. 4. Vitamin D deficiency. CONSULTATIONS: Yefri Barclay MD from General Surgery. HOSPITAL COURSE: This is a 35-year-old female patient, who came to the emergency room with a chief complaint of multiple bouts of vomiting, as well as abdominal pain. In the emergency room, the patient was noticed to be febrile with a temperature of 102.2 and was mildly tachycardic. The patient underwent a gallbladder ultrasound that showed cholelithiasis, including a gallstone in the region of the gallbladder neck. The ultrasound also revealed gallbladder wall thickening with no evidence of any biliary obstruction. Provided the patient's history of present illness and the diagnostic findings, a clinical decision was made to admit the patient to inpatient setting to have her further evaluated. The patient was admitted to inpatient medical/surgical floor. The patient was kept n.p.o. The patient was started on empiric antibiotics. The patient was started on IV fluids. A general surgery consult was called. The patient was taken to the OR on 08/16/2006, and the patient underwent a laparoscopic cholecystectomy. The patient was noticed to have acute cholecystitis. The patient also had an umbilical hernia that was repaired during the surgery. Postoperatively, the patient was transferred back to medical/surgical floor, and the patient was started on a clear liquid diet. The patient's diet was advanced as tolerated to a regular consistency diet without significant gastrointestinal symptoms. The patient started passing gas. The patient was cleared by general surgery to be discharged home. The patient was incidentally found to have a low vitamin D level. The patient was started on vitamin D supplements. The patient also is obese with a BMI of 32.8 kilograms per meter square. The patient was advised on weight reduction. The patient had a stable hospital course. The patient denied any significant complaints at the time of discharge, other than incisional pain, that is well controlled with analgesics. DISCHARGE DISPOSITION/PLAN: The patient will be discharged home today. The patient was instructed to take a regular diet as tolerated. The patient was instructed to keep the incisions clean and dry, and she may shower, but to avoid hot tub baths and swimming for 2 weeks. She was instructed to use mild soap and pat dry the incisions. The patient was instructed to take medications as needed for pain. She was instructed to call the surgeon or go to the nearest emergency room if she has any abdominal pain despite pain medications. The patient was also instructed to call the surgeon or go to the nearest emergency room if she notices any bleeding or secretions coming out of the incision sites, and also to call the surgeon if she notices any blood in stool, or if she has persistent fevers, or any other unusual signs or symptoms. The patient was instructed to follow up with Dr. Barclay in 7 weeks for incision check. She was instructed to avoid heavy lifting for more than 25 pounds for 8 weeks. The patient was instructed that she may return to school or work on with the restriction of no heavy lifting for 8 weeks. The patient verbalized understanding of her discharge instructions. CONDITION AT DISCHARGE: Stable. DISCHARGE MEDICATIONS: 1. [place] 5/325 one tablet p.o. q.4 hours p.r.n. pain (#20 tablets). 2. Colace 100 mg p.o. b.i.d. for 15 days. 3. Vitamin D3 1000 units p.o. daily. PERTINENT LABORATORY AND DIAGNOSTIC DATA: 1. Gallbladder ultrasound: Cholelithiasis including a gallstone in the region of the gallbladder neck, gallbladder wall thickening. No evidence for biliary dilatation. 2. Laparoscopic cholecystectomy and umbilical hernia repair, 08/16/2016. 3. Latest CBC: WBC 8.2, hemoglobin 10.0, hematocrit 31.5, platelet count 284. 4. Latest BMP: Sodium 134, potassium 3.7, chloride 106, carbon dioxide 23, anion gap 9, BUN 6, calcium 7.7, phosphorus 2.9, magnesium 1.9. 5. Vitamin D level less than 12.8. 6. Hemoglobin A1c 5.6. 7. Fasting lipid panel: Triglycerides 67, total cholesterol 130, LDL 76, HDL 41. At this time, we would like to thank Dr. Barclay for seeing the patient, doing the necessary procedures, and providing clinical recommendations. The case and management of this patient was fully discussed with Dr. Page. Approximately 35 minutes was spent on coordinating the discharge on this patient. LOS PAGE MD, AM/ERIC Conf#: [id number] DID#: [id number]
== END 2016-08-17 18:15 | disposition home or self-care (01) | DRG 419 ==
LOC: FTE 20:52 → MS1 08-16 03:10
PROVIDERS: ADMIT Family Medicine; ATTEND Family Medicine
PROC: 0FB04ZX Excision of Liver, Percutaneous Endoscopic Approach, Diagnostic (ICD-10-PCS; 2016-08-16)
PROC: 0WQF4ZZ Repair Abdominal Wall, Percutaneous Endoscopic Approach (ICD-10-PCS; 2016-08-16)
PROC: 0FT44ZZ Resection of Gallbladder, Percutaneous Endoscopic Approach (ICD-10-PCS; principal; 2016-08-16 13:00)
DX: K80.00 Calculus of gallbladder with acute cholecystitis without obstruction (principal); K76.0 Fatty (change of) liver, not elsewhere classified; K42.9 Umbilical hernia without obstruction or gangrene; E55.9 Vitamin D deficiency, unspecified; E66.9 Obesity, unspecified; Z68.32 Body mass index [BMI] 32.0-32.9, adult
CPT/HCPCS: 36415; 76705; 80053; 80061; 81001; 81003; 82652; 83036; 83690; 83735; 83880; 84100; 84439; 84443; 85025; 85610; 85730; 88304; 88307; 88313; 96374; 96375; J0131; J1100; J1170; J1650; J1885; J2250; J2405; J2543; J2710; J2765; J2795; J3480; J7030

== ENCOUNTER 2016-08-28 13:46 | Outpatient (CLI) | payer OTHER ==
[~2016-08-28] VITALS: Ht 165.1 cm; Wt 84.5 kg
[~2016-08-28 13:46] MED LIST changes: +CHOL100062 PO; +DOCU-144 PO; +HYDR-3498 PO; -NITR-36; -[UNRECOGNIZED DRUG - OTHER]
[2016-08-28 14:11] VITALS: BP 132/79; PULSE 86; RESP 18; Ht 165.1 cm; Wt 84.5 kg
--- NOTE | 2016-08-28 15:02 | PN ---
Date/Time of Note Date/Time of Note DATE: 08/28/16 TIME: 14:54 Assessment/Plan Assessment/Plan Assessment/Plan [facility] Progress Note Date of Service: 08/28/16 Today's Impression & Plan: Overall doing well post op without major issues. No major wound problems. Discussed pathology result, with focus on severe macro and micro steatosis and ways to combat that with permanent changes toward healthier lifestyle (more than 15 min counseling time for this portion). With above assessment, I've recommended the following for today: 1. F/u with PCP 2. F/u with us prn 3. Follow advice on ways to combat diagnosis with permanent changes toward healthier lifestyle Thank you again for your great care of this very pleasant patient and wonderful family. If there are any questions, please feel free to call me at [phone]. TOTAL VISIT TIME: 20 minutes of which more than half was spent in [id number] discussion with the patient, possibly including family, as well as coordination of care between multiple physicians and providers. Disclaimer: Inadvertent spelling or grammatical errors are likely due to EHR/ dictation software use and do not reflect on the overall quality of patient care. Updated Clinical Summary: The patient is a very pleasant 35-year-old lady with known comorbidities of a BMI of 32.8 and prior operations, presenting with symptomatic cholelithiasis and possible early acute cholecystitis. S/p laparoscopic cholecystectomy, core needle liver biopsy segment 5 (3 cores) andu mbilical hernia repair (1 x 1 cm, repaired without mesh) on 08/16/16 at [facility]. Final pathology showed chronic cholecystitis and severe macro and micro steatosis of the liver without evidence for cirrhosis. COMORBIDITIES: 1. Acute cholecystitis. S/p laparoscopic cholecystectomy, core needle liver biopsy segment 5 (3 cores) andu mbilical hernia repair (1 x 1 cm, repaired without mesh) on 08/16/16 at [facility]. Final pathology showed chronic cholecystitis and severe macro and micro steatosis of the liver without evidence for cirrhosis. 2. BMI of 32.8. 3. Cholelithiasis 4. Appendectomy 5. C-sections (x2) 6. Likely fatty liver disease 7. Umbilical hernia, status post repair 08/16/2016 Subjective: No major events or complaints; no major abd pain and no longer on pain medications; no n/v/d; no sob or cp; + flatus; + BM; + activity Objective: Vitals: See below Exam: GENERAL: On exam, the patient was laying in bed and appeared to be comfortable and in no acute distress. ABDOMEN: Soft, nontender and nondistended. Incisions are clean, dry and intact without any evidence of erythema, edema, discharge, or hernia. There are no peritoneal signs or guarding. SKIN: Skin appears to be pink and feels warm to touch. NEUROLOGIC: Patient is awake, alert, and follows commands appropriately. Exam/Review of Systems Vital Signs Vitals Vital Signs Date Time Temp Pulse Resp B/P Pulse Ox O2 Delivery O2 Flow Rate FiO2 08/28/16 14:11 98.6 86 18 132/79 99 Room Air BLAS DEMARCO M.D. August 28, 2016 15:02
== END 2016-08-28 16:45 | disposition home or self-care (01) ==
LOC: HPC 13:46
PROVIDERS: ATTEND Transplant Surgery
DX: K81.1 Chronic cholecystitis (principal); K76.0 Fatty (change of) liver, not elsewhere classified
CPT/HCPCS: G0463